=== PATIENT | female | born 1980 | race Caucasian/White ===

== ENCOUNTER 2025-04-15 16:32 | Emergency (ER) | payer OTHER, SELFPAY ==
[2025-04-15 16:37] VITALS: BP 160/87; PULSE 93; TEMP 37.2; O2SAT 99; BMI 35.4
--- OUTSIDE RECORDS SUMMARY | 2025-04-15 16:43 | XMS_ITS | Clinical Summary ---
Author Organization [facility] Address [address], [address] [place] [address] Care Team Providers Care Cardiac Cath Rn Name Role Phone Devika Rubi [employer] OPERATOR - [employer] OPERATOR Primary Care Provide r Allergies No known active allergies Medications varenicline (CHANTIX) 1 MG tablet Take 1 mg by mouth 2 times daily Active hydrOXYzine (VISTARIL) 50 MG capsule Take 50 mg by mouth 4 times daily as needed for Itching Active lidocaine (XYLOCAINE) 5 % ointment Apply topically as needed for Pain Apply topically as needed. Active sertraline (ZOLOFT) 50 MG tablet Take 50 mg by mouth daily Active traZODone (DESYREL) 100 MG tablet Take 100 mg by mouth nightly as needed for Sleep Active PARoxetine (PAXIL) 20 MG tablet Take 20 mg by mouth every morning Active ibuprofen (IBU) 600 MG tablet Take 1 tablet by mouth every 8 hours as needed for Pain 30 tablet 1 Active Active Problems Problem Noted Date Diagnosed Date Pilonidal cyst 02/13/2016 Overview (07/11/2017): Updating Deprecated Diagnoses Family History Relation Name Status Comments Father Alive Mother Alive Social History Tobacco Use Types Packs/Day Years Used Date Smoking Tobacco: Former Smokeless Tobacco: Never Alcohol Use Standard Drinks/Week Comments Yes 0 (1 standard drink = 0.6 oz pur e alcohol) socially Comments No Sex and Gender Information Value Date Recorded Sex Assigned at Not on file Legal Sex Female 9:22 AM EST Gender Identity Not on file Sexual Orientation Not on file Last Filed Vital Signs Vital Sign Reading Time Taken Comments Blood Pressure 142/74 05/19/2021 7:31 PM EDT Pulse 96 05/19/2021 7:31 PM EDT Temperature 37.9 C (100.2 F) 05/19/2021 7:31 PM EDT Respiratory Rate 18 05/19/2021 7:31 PM EDT Oxygen Saturation 99% 05/19/2021 7:31 PM EDT Inhaled Oxygen Concentration - - Weight 87.1 kg (192 lb) 10/21/2015 5:41 AM EST Height 160 cm (5' 3 ) 02/13/2016 1:58 PM EDT Body Mass Index 35.12 10/21/2015 5:41 AM EST Plan of Treatment Not on file Insurance [employer] Care Teams Cardiac Cath Rn Relationship Specialty Start Date End Date Devika Rubi APRN - [facility] [address] [place] [address] PCP - General 10/05/20
--- NOTE | 2025-04-15 17:17 | XR_ITS ---
[facility] [place] [id number] Patient Name: USMAN VALENTINO MRN: [id number] date: 1980 Sex: F Assigned Patient Location: ER Current Patient Location: ED.MAIN Accession/Order Number: [id number] Exam Date: 04/15/2025 18:44 Report Date: 04/15/2025 18:45 At the request of: AFIA ALVA Procedure: XR lumbar spine 2-3V 2 views lumbar spine INDICATION: Right lower back pain COMPARISON: None FINDINGS: Moderate levocurvature at the thoracal lumbar junction. Multilevel degenerative changes notably at the junction and involving the facet joints identified as a result. No evidence of acute fracture or malalignment. Radiopaque calcifications overlying the visualized renal shadows or psoas muscles. XR/XR lumbar spine 2-3V IMPRESSION: Levocurvature and associated degenerative changes.. No definite acute fracture or malalignment. Impression dictated by: Tobin Treivno M.D. 04/15/2025 6:45 PM Dictation Location: [place] [address] Electronically authenticated by: [id number] Y Date: 04/15/2025 18:45
--- NOTE | 2025-04-15 17:18 | ED_ITS ---
HPI HPI - Back Pain/Injury General Chief Complaint: Back Pain/Injury Stated Complaint: BACK PAIN Time Seen by Provider: 04/15/25 17:08 Source: patient Mode of arrival: walk-in Limitations: no limitations History of Present Illness HPI Narrative: Patient is a 45-year-old female presents to the ER with concerns of right lower back pain. Patient notes symptoms 2 weeks ago has a history of scoliosis but typically does not have ongoing back pain. She has been working longer shifts at [employer] and [employer] but does not know if this was the cause. She denies any numbness or tingling in the bowel or bladder area she denies any saddle paresthesias and denies any anterior abdominal pain. She notes pain is worse with movement involving forward flexion and twisting with pain that radiates from her right lower back to her right buttock and right lateral mid thigh. She denies any chest pain or shortness of breath. She has been taking Motrin and Tylenol at home without relief and notes pain is becoming more severe. She denies any fall or trauma. She has been without fever or recent illness. She denies any dysuria and states there is no chance of as she is not sexually active. She denies any known family history of aortic aneurysm or kidney stones. She notes that her mother has scoliosis and does suffer from chronic back pain as well. MD elicited complaint: Reports back pain Pertinent past history: Reports prior back pain; Denies kidney stones Onset (ago): week(s) (2) Timing: Reports constant Severity: moderate Quality: Reports aching and spasming Location: Reports right lower back Radiation: Reports right upper leg (latera mid thigh) Exacerbating factors: Reports movement Relieving factors: Reports none Associated symptoms: denies other symptoms Treatments prior to arrival: NSAIDS Related Data Previous Rx's ?Medication ?Instructions ?Recorded hydrocodone 5 mg-acetaminophen 325 1 tab PO TID PRN pa in 2 days #6 04/15/25 mg tablet tabs methocarbamol 750 mg tablet 750 mg PO TID PRN spasm 6 days #18 04/15/25 tabs prednisone 20 mg tablet 40 mg (2 x 20 mg) PO DAILY 5 days 04/15/25 #10 tabs Allergies Allergy/AdvReac Type Severity Reaction Status Date / Time No Known Drug Allergies Allergy Verified 04/15/25 16:40 Opioid HPI Opioid Management Most Recent Opioid Data: Last Pain Scale 8 Today, 16:37 Last MAR Pain Assessment Today, 17:30 Review of Systems ROS Constitutional Denies: fever or chills Eyes Denies: change in vision or blurry vision Ears, nose, mouth, and throat Denies: throat pain or neck pain Cardiovascular Denies: chest pain, palpitations, edema, shortness of breath with exertion or leg pain with exertion Respiratory Denies: shortness of breath, cough, wheezing or pain on inspiration Gastrointestinal Denies: abdominal pain, nausea, vomiting or diarrhea Genitourinary Denies: painful urination, urinary frequency, urinary urgency, urinary incontinence or blood in urine Musculoskeletal Reports: back pain; Denies: neck pain, extremity pain or extremity swelling Integumentary/Breast Denies: rash, itching or redness Neurological Denies: headache, numbness in extremities, weakness in extremities or dizziness Psychiatric Denies: anxiety Hematologic/Lymphatic Denies: easy bruising PFSH PFSH Social History Little interest or pleasure in doing things: not at all Feeling down, depressed, or hopeless: not at all Exam Narrative Exam Narrative: Vital Signs reviewed and nurse's notes reviewed. The patient is not hypoxic. General: Alert, no acute distress, patient resting comfortably Skin: warm, intact, no pallor noted, no rash Head: Normocephalic, atraumatic Eye: Normal conjunctiva, EOMI Respiratory: No acute distress Abdomen: Normal bowel sounds, soft, nontender, no masses detected. No rebound, guarding, or rigidity noted. No midline pulsatile mass. Back: inspection of the back shows mild scoliotic curvature of lumbar spin. no swelling, no ecchymosis, contusion, abrasion, swelling, erythema, fluctuance or induration. No step offs or crepitus noted. No CVA tenderness noted bilaterally. Tenderness noted to her back with right paraverterbal lumbar Spasms notable. + pain with forward flexion and position change in bed. Straight leg raise on left is negative. Straight leg raise on right is positive at 20 degrees. No visible rash Musculoskeletal: No deformity noted to bilateral lower extremities. No pain with internal or external rotation bilateral hips. Neg VIKTOR, neg FADIR. no cyanosis or mottling noted. normal pulses at DP and PT 2+ bilaterally and symmetrically. Normal 5/5 strength at ankles with dorsiflexion and plantar flexion. Patient is able to ambulate. Normal sensation noted to the bilateral lower extremities. Neurological: alert and oriented x4, normal sensory and motor observed. DTR 2+ at patellar and achilles bilaterally. neg Clonus Psychiatric: Cooperative Constitutional Vital Signs, click to edit/add: Last Vital Signs Temp 98.9 F 04/15/25 16:37 Pulse 93 H 04/15/25 16:37 Resp 16 04/15/25 16:37 BP 160/87 H 04/15/25 16:37 Pulse Ox 99 04/15/25 16:37 O2 Del Method Room Air 04/15/25 16:37 Course Vital Signs Vital signs: Vital Signs Temperature 98.9 F 04/15/25 16:37 Pulse Rate 93 H 04/15/25 16:37 Respiratory Rate 16 04/15/25 16:37 Blood Pressure 160/87 H 04/15/25 16:37 Pulse Oximetry 99 04/15/25 16:37 Oxygen Delivery Method Room Air 04/15/25 16:37 Temperature 98.9 F 04/15/25 16:37 Pulse Rate 93 H 04/15/25 16:37 Respiratory Rate 16 04/15/25 16:37 Blood Pressure 160/87 H 04/15/25 16:37 Pulse Oximetry 99 04/15/25 16:37 Oxygen Delivery Method Room Air 04/15/25 16:37 MDM - Back Pain/Injury MDM Narrative Medical decision making narrative: Patient denies injury presents with right lower back pain spasming worse with position change and movement relieved with sitting in certain positions. She denies any bowel or bladder continence or saddle paresthesias she has no focal neurological deficit but the palpable spasm is prominent in her right lower back. She denies tenderness in the CVA region. There is been no fever or dysuria. Urinalysis will be obtained. She is medicated here for pain. We have recommended x-rays given 2 weeks of progressive symptoms and her prior history of scoliosis with the need for potential outpatient follow-up and physical therapy. She does work at [employer] and is scheduled to work again on Thursday. Has an appointment with her family doctor at the end of the month to discuss symptoms. Friend at bedside will be driving. Differential Diagnosis Differential diagnosis: Likely lumbar radiculopathy and sciatica Lab Data Labs: Lab Results 04/15/25 Range/Units 18:13 Urine Color Yellow (YELLOW) Urine Clarity Clear (CLEAR) Urine pH 6.5 (5.0-9.0) Ur Specific [place] 1.020 (1.005-1.025) Urine Protein Negative (NEG/TRACE) mg/dL Urine Glucose (UA) Negative (NEGATIVE) mg/dL Urine Ketones Negative (NEGATIVE) mg/dL Urine Occult Blood Trace-i (NEGATIVE) Urine Nitrite Negative (NEGATIVE) Urine Bilirubin Negative (NEGATIVE) Urine Urobilinogen 1.0 (0.2-1.0) EU/dL Ur Leukocyte Esterase Negative (NEGATIVE) Urine RBC 0-2 (0-2) #/HPF Urine WBC 0-2 A (NONE SEEN) #/HPF Ur Squamous Epith Cells Rare (NONE/RARE) #/LPF Urine Crystals Seen A (None Seen) #/HPF Calcium Oxalate Crystal Few Urine Bacteria Trace A (NONE SEEN) #/HPF Urine Casts None seen (NONE SEEN) #/LPF Urine Mucus Small A (NONE SEEN) Ur Culture Indicated? No Urine HCG, Qual Negative (NEGATIVE) Imaging Data xray lumbar: Attestation: I have reviewed the pertinent imaging results. Radiologist's impression: Levocurvature and associated degenerative changes no definitive acute fracture or malalignment. Discharge Plan Discharge Chief Complaint: Back Pain/Injury Clinical Impression: Low back pain, Spasm of lumbar paraspinous muscle Patient Disposition: Home, Self-Care Time of Disposition Decision: 18:42 Condition: Good Mode of Transportation: Private Vehicle Prescriptions / Home Meds: New prednisone 20 mg tablet 40 mg PO DAILY 5 Days Qty: 10 0RF hydrocodone-acetaminophen 5-325 mg tablet 1 tab PO TID PRN (Reason: pain) 2 Days Qty: 6 0RF methocarbamol 750 mg tablet 750 mg PO TID PRN (Reason: spasm) 6 Days Qty: 18 0RF Print Language: Chinese Instructions: Acute Low Back Pain (ED), Muscle Spasm (ED) Additional Instructions: Contact your Physician in [place] for sooner follow up and to discuss possible therapy referral. Return to ER if symptoms worsen or new symptoms develop Referrals: Physician,Non-Staff, MD [Primary Care Provider] - 1 week
[2025-04-15] MEDS: KETOROLAC TROMETHAMINE 60 MG/2 ML VIAL IM (17:30)
[2025-04-15] MEDS: MORPHINE SULFATE 4 MG/ML VIAL 6 MG IM (17:30)
[2025-04-15] MEDS: PREDNISONE 20 MG TABLET 40 MG PO (17:31)
[2025-04-15] MEDS: DIAZEPAM 2 MG TABLET PO (17:31)
[2025-04-15 18:26] LABS: Glucose Urine UA NEGATIVE (NEGATIVE)
[2025-04-15 18:30] LABS: HCG Qualitative Urine* NEGATIVE (NEGATIVE)
[2025-04-15 18:32] LABS: Cast Seen? NONE SEEN #/LPF (NONE SEEN); Crystals Seen? Seen #/HPF (None Seen); Urine Culture Indicated NO
== END 2025-04-15 19:02 | disposition home or self-care (01) ==
PROVIDERS: Personal Emergency Response Attendant; Emergency Provider Emergency Medicine
DX: M54.50 Low back pain, unspecified (principal); M62.830 Muscle spasm of back; M41.9 Scoliosis, unspecified
CPT/HCPCS: 72100; 81001; 84703; 96372; 99285; J1885; J2270; J7512

== ENCOUNTER 2025-04-25 15:46 | Outpatient (RCR) | payer OTHER, SELFPAY | END 2025-06-08 07:39 | disposition home or self-care (01) | LOC: PT 15:46 | PROVIDERS: Visit Provider Case Manager/Care Coordinator | DX: M41.9 Scoliosis, unspecified (principal) | CPT/HCPCS: 97010; 97014; 97110; 97113; 97140; 97161 ==